=== PATIENT | female | born 1950 | race Caucasian/White ===

== ENCOUNTER → 2024-10-29 16:27 | Outpatient (REF) | payer MEDICARE, OTHER, SELFPAY | LOC: RAD 16:27 | PROVIDERS: ATTENDING PHYSICIAN Family Medicine | DX: Z00.00 Encounter for general adult medical examination without abnormal findings (principal); D49.6 Neoplasm of unspecified behavior of brain | CPT/HCPCS: 70450 ==

== ENCOUNTER → 2024-11-02 10:18 | Outpatient (REF) | payer MEDICARE, OTHER, SELFPAY | LOC: PAVMRI 10:18 | PROVIDERS: ATTENDING PHYSICIAN Family Medicine | DX: Z87.81 Personal history of (healed) traumatic fracture (principal) | CPT/HCPCS: 73721 ==